=== PATIENT | female | born 1965 | race Caucasian/White ===

== ENCOUNTER → 2017-05-26 15:31 | Outpatient (CLI) | payer OTHER ==
[2017-05-26 15:58] LABS: BASOPHILS 0.1 % (0-2); EOSINOPHILS 0.3 % (0-7); HEMATOCRIT 38.6 % (36.0-48.0); HEMOGLOBIN 13.3 g/dL (12-16); IMMATURE GRANULOCYTES 0.1 % (0-5); MCHC 34.5 g/dL (31.0-37.0); MEAN PLATELET VOLUME 11.3 fL (7.4-10.4); NEUTROPHILS 73.5 % (40-80); PLATELET COUNT 285 10x3/uL (130-400); RBC 4.15 10x6/uL (4.00-5.40); RDW 12.1 % (11.5-14.5); WBC 8.9 10x3/uL (4.8-10.8)
[2017-05-26 16:28] LABS: ALBUMIN 3.2 g/dL (3.4-5.0); ALKALINE PHOSPHATASE 96 U/L (46-116); ALT (SGPT) 29 U/L (10-68); BILIRUBIN - TOTAL 0.76 mg/dL (0.2-1.3); C-REACTIVE PROTEIN 10.4 mg/dL (0.0-0.9); CALC OSMOLALITY 275 mosm/kg (275-300); CALCIUM 8.4 mg/dL (8.5-10.1); CHLORIDE - SERUM 102 mmol/L (98-107); CREATININE - SERUM 0.5 mg/dL (0.6-1.3); GLUCOSE 85 mg/dL (74-106); POTASSIUM - SERUM 4.5 mmol/L (3.5-5.1); SODIUM 138 mmol/L (136-145); UREA NITROGEN 16 mg/dL (7-18); eGFR NON AFRICAN AMERICAN > 90 mL/min (90-120)
[2017-05-26 17:16] LABS: ERYTHROCYTE SEDIMENTATION RATE 50 mm/hr (0-30)
== END | disposition home or self-care (01) ==
LOC: D.RAD 15:31
PROVIDERS: Student in an Organized Health Care Education/Training Program
DX: R50.9 Fever, unspecified (principal)

== ENCOUNTER → 2017-05-29 06:39 | Outpatient (CLI) | payer OTHER | END | disposition home or self-care (01) | LOC: D.NM 06:39 | DX: R50.9 Fever, unspecified (principal); T84.59XA Infection and inflammatory reaction due to other internal joint prosthesis, initial encounter; R68.83 Chills (without fever) ==